=== PATIENT | female | born 1940 | race Caucasian/White ===

== ENCOUNTER 2019-02-06 06:33 | Day surgery (SDC) | payer OTHER, MEDICARE ==
[2019-02-05 16:14] VITALS: BMI 22.8
[2019-02-06 07:28] LABS: BASO % 0.7 % (0-2.0); EOS % 3.1 % (0-4.5); HEMATOCRIT 41.9 % (32.4-45.2); HEMOGLOBIN 13.8 GM/dl (10.7-15.3); MCH 27.8 pg (25.7-33.7); MCHC 32.9 g/dl (32.0-36.0); MEAN CELL VOLUME 84.5 fl (80-96); MEAN PLT VOLUME 6.4 fl (7.5-11.1); MONO % 9.6 % (3.8-10.2); NEUT % 56.6 % (42.8-82.8); PLATELET COUNT 426 K/MM3 (134-434); RBC 4.95 M/mm3 (3.60-5.2); RDW 13.4 % (11.6-15.6)
[2019-02-06] MEDS ORDERED: ACETAMINOPHEN 325 MG TABLET (FP) PO PRN (07:29)
[2019-02-06] MEDS ORDERED: PROMETHAZINE HCL 25 MG/1 ML VIAL IVPUSH PRN (07:29)
[2019-02-06] MEDS ORDERED: ONDANSETRON 4 MG/2 ML VIAL IVPUSH PRN (07:29)
[2019-02-06] MEDS ORDERED: LACTATED RINGERS SOLUTION 1,000 ML IV SCH (07:30)
[2019-02-06 07:33] LABS: ALBUMIN 4.3 g/dl (3.4-5.0); BILIRUBIN,TOTAL 0.4 mg/dl (0.2-1); CALCIUM 9.3 mg/dl (8.5-10); CREATININE 0.7 mg/dl (0.55-1.3); MAGNESIUM 2.1 mg/dL (1.8-2.4); POTASSIUM 4.7 mmol/L (3.5-5.1); TOT PROT 7.1 g/dl (6.4-8.2)
[2019-02-06] MEDS ORDERED: KETAMINE HCL 500 MG/10 ML VIAL ONE (07:57)
[2019-02-06 11:14] VITALS: TEMP 98.2
[2019-02-06 11:44] VITALS: BP 138/72; PULSE 72
--- NOTE | 2019-02-06 14:16 | HP ---
CHIEF COMPLAINT: Major depressive disorder PCP: Dr. Gibson [place] Primary Psychiatrist: HISTORY OF PRESENT ILLNESS: 78 year-old female with a PMH significant for HTN, HLD, hypothyroidism, colitis , and major depressive disorder. Patient presents today for her first ECT session. 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 [employer]; lives in [place] with , no children Smoking: quit 40 years ago Alcohol: social Drugs: no Family history: father decesased CVA, colon cancer; mother depression, lung cancer Allergies escitalopram Allergy (Severe, Verified 02/05/19 15:49) HYPERTENSION HOME MEDICATIONS: Home Medications Medication Instructions Recorded Amlodipine Besylate 2.5 mg PO DAILY 02/05/19 Budesonide [Budesonide EC] 3 mg PO DAILY 02/05/19 Clonidine HCl 0.1 mg PO DAILY PRN 02/05/19 Hydrochlorothiazide [Hctz -] 12.5 mg PO DAILY 02/05/19 Levothyroxine [Synthroid -] 50 mcg PO DAILY 02/05/19 Lorazepam [Ativan] 0.5 mg PO DAILY 02/05/19 Lorazepam [Ativan] 0.5 mg PO DAILY PRN 02/05/19 Propranolol HCl 20 mg PO DAILY 02/05/19 Quetiapine Fumarate [Seroquel] 100 mg PO HS 02/05/19 Quinapril HCl 60 mg PO DAILY 02/05/19 Zolpidem Tartrate [Ambien] 5 mg PO HS 02/05/19 REVIEW OF SYSTEMS CONSTITUTIONAL: Absent: fever, chills, diaphoresis, generalized weakness, malaise, loss of appetite, weight change HEENT: Absent: rhinorrhea, nasal congestion, throat pain, throat swelling, difficulty swallowing, mouth swelling, ear pain, eye pain, visual changes CARDIOVASCULAR: Absent: chest pain, syncope, palpitations, irregular heart rate, lightheadedness , peripheral edema RESPIRATORY: Absent: cough, shortness of breath, dyspnea with exertion, orthopnea, wheezing, stridor, hemoptysis GASTROINTESTINAL: Absent: abdominal pain, abdominal distension, nausea, vomiting, diarrhea, constipation, melena, hematochezia GENITOURINARY: Absent: dysuria, frequency, urgency, hesitancy, hematuria, flank pain, genital pain MUSCULOSKELETAL: Absent: myalgia, arthralgia, joint swelling, back pain, neck pain SKIN: Absent: rash, itching, pallor HEMATOLOGIC/IMMUNOLOGIC: Absent: easy bleeding, easy bruising, lymphadenopathy, frequent infections ENDOCRINE: Absent: unexplained weight gain, unexplained weight loss, heat intolerance, cold intolerance NEUROLOGIC: Absent: headache, focal weakness or paresthesias, dizziness, unsteady gait, seizure, mental status changes, bladder or bowel incontinence PHYSICAL EXAMINATION Vital Signs - 24 hr 02/06/19 02/06/19 02/06/19 07:35 09:50 09:55 Temperature 97.5 F L Pulse Rate 60 64 69 Respiratory 16 16 16 Rate Blood Pressure 152/70 154/68 147/68 O2 Sat by Pulse 96 100 100 Oximetry (%) 02/06/19 02/06/19 02/06/19 10:00 10:05 10:20 Temperature Pulse Rate 68 65 67 Respiratory 19 14 17 Rate Blood Pressure 155/74 161/69 165/72 O2 Sat by Pulse 99 100 100 Oximetry (%) 02/06/19 02/06/19 02/06/19 10:35 10:40 10:50 Temperature 97.5 F L 98.2 F Pulse Rate 68 68 70 Respiratory 17 17 18 Rate Blood Pressure 162/70 162/70 156/78 O2 Sat by Pulse 99 99 96 Oximetry (%) 02/06/19 02/06/19 11:20 11:44 Temperature 98.2 F Pulse Rate 72 72 Respiratory 18 18 Rate Blood Pressure 138/72 138/72 O2 Sat by Pulse 97 Oximetry (%) GENERAL: Awake, alert, and fully oriented, in no acute distress. HEAD: Normal with no signs of trauma. EYES: Pupils equal, round and reactive to light, sclera anicteric, conjunctiva clear. LUNGS: Breath sounds equal, clear to auscultation bilaterally. No wheezes, and no crackles. No accessory muscle use. HEART: Regular rate and rhythm, normal S1 and S2 ABDOMEN: Soft, nontender, not distended MUSCULOSKELETAL: Normal range of motion at all joints. No bony deformities or tenderness. No CVA tenderness. UPPER EXTREMITIES: 2+ pulses, warm, well-perfused. No cyanosis. No clubbing. No peripheral edema. LOWER EXTREMITIES: 2+ pulses, warm, well-perfused. No calf tenderness. No peripheral edema. NEUROLOGICAL: Cranial nerves II-XII intact. Normal speech. Laboratory Results - last 24 hr 02/06/19 02/06/19 07:00 07:00 WBC 7.0 RBC 4.95 Hgb 13.8 Hct 41.9 MCV 84.5 MCH 27.8 MCHC 32.9 RDW 13.4 Plt Count 426 MPV 6.4 L Absolute Neuts (auto) 4.0 Neutrophils % 56.6 Lymphocytes % 30.0 Monocytes % 9.6 Eosinophils % 3.1 Basophils % 0.7 Sodium 128 L Potassium 4.7 Chloride 93 L Carbon Dioxide 27 Anion Gap 8 BUN 9.0 Creatinine 0.7 Est GFR (CKD-EPI)AfAm 96.86 Est GFR (CKD-EPI)NonAf 83.57 Random Glucose 109 H Calcium 9.3 Magnesium 2.1 Total Bilirubin 0.4 AST 21 ALT 22 Alkaline Phosphatase 58 Total Protein 7.1 Albumin 4.3 ASSESSMENT/PLAN 78 year-old female with a PMH significant for HTN, HLD, hypothyroidism, colitis , and major depressive disorder. Patient presents today for her first ECT session. Cardiac --HTN is treated with four daily medications and clonidine PRN. --BP needs to be carefully monitored prior to each ECT session --Revised Cardiac Risk Index for Pre-Operative Risk: 0 points, 0.4% risk of major cardiac event Pulmonary --no pulmonary history Neurological --no neurological or neurosurgical history; no history of trauma Anesthesia --no reported problems with anesthesia ECT is a low risk procedure. The relative benefits of the planned procedure outweigh the relative risks for this patient at this time. Visit type - Emergency Visit Emergency Visit: No - New Patient This patient is new to me today: Yes Date on this admission: 02/06/19 - Critical Care Critical Care patient: No
--- NOTE | 2019-02-10 11:33 | EKG ---
Test Reason : Blood Pressure : / mmHG Vent. Rate : 061 BPM Atrial Rate : 061 BPM P-R Int : 160 ms QRS Dur : 080 ms QT Int : 406 ms P-R-T Axes : 055 018 040 degrees QTc Int : 408 ms NORMAL SINUS RHYTHM NO PREVIOUS ECGS AVAILABLE Confirmed by SYED PALM MD ([id number]) on 02/10/2019 11:33:28 AM Referred By: Mikael Azevedo Confirmed By:SYED PALM MD
== END 2019-02-06 11:45 | disposition home or self-care (01) ==
LOC: FECT 06:33
PROVIDERS: ATTEND Psychiatry & Neurology Psychiatry
PROC: GZB4ZZZ Other Electroconvulsive Therapy (ICD-10-PCS; principal; 2019-02-06 07:30)
DX: F33.2 Major depressive disorder, recurrent severe without psychotic features (principal); I10 Essential (primary) hypertension; E78.5 Hyperlipidemia, unspecified; E03.9 Hypothyroidism, unspecified
CPT/HCPCS: 36415; 80053; 83735; 85025; 90870; 93005; 94760

== ENCOUNTER 2019-02-07 05:51 | Day surgery (SDC) | payer OTHER, MEDICARE ==
[2019-02-06 13:05] VITALS: BMI 22.8
[2019-02-07] MEDS ORDERED: KETAMINE HCL 500 MG/10 ML VIAL ONE (07:29)
[2019-02-07] MEDS ORDERED: LACTATED RINGERS SOLUTION 1,000 ML IV SCH (09:00)
[2019-02-07 09:03] VITALS: BP 154/62; PULSE 64; TEMP 98
== END 2019-02-07 09:30 | disposition home or self-care (01) ==
LOC: FECT 05:51
PROVIDERS: ATTEND Psychiatry & Neurology Psychiatry
PROC: GZB4ZZZ Other Electroconvulsive Therapy (ICD-10-PCS; principal; 2019-02-07 08:00)
DX: F32.9 Major depressive disorder, single episode, unspecified (principal)
CPT/HCPCS: 90870; 94760

== ENCOUNTER 2019-02-10 05:46 | Day surgery (SDC) | payer OTHER, MEDICARE ==
[2019-02-06 13:13] VITALS: BMI 22.8
[2019-02-10] MEDS ORDERED: LACTATED RINGERS SOLUTION 1,000 ML IV SCH (07:00)
[2019-02-10] MEDS ORDERED: KETAMINE HCL 500 MG/10 ML VIAL ONE (07:27)
[2019-02-10 08:52] VITALS: TEMP 97.9
[2019-02-10 10:16] VITALS: BP 152/72; PULSE 66
== END 2019-02-10 10:25 | disposition home or self-care (01) ==
LOC: FECT 05:46
PROVIDERS: ATTEND Psychiatry & Neurology Psychiatry
PROC: GZB4ZZZ Other Electroconvulsive Therapy (ICD-10-PCS; principal; 2019-02-10 07:30)
DX: F33.2 Major depressive disorder, recurrent severe without psychotic features (principal)
CPT/HCPCS: 90870; 94760

== ENCOUNTER 2019-02-12 05:47 | Day surgery (SDC) | payer OTHER, MEDICARE ==
[2019-02-06 13:18] VITALS: BMI 22.8
[2019-02-12] MEDS ORDERED: ONDANSETRON 4 MG/2 ML VIAL IVPUSH PRN (06:54)
[2019-02-12] MEDS ORDERED: oxyCODONE HCL 5 MG TABLET PO PRN (06:54)
[2019-02-12] MEDS ORDERED: ACETAMINOPHEN 325 MG TABLET (FP) PO PRN (06:54)
[2019-02-12] MEDS ORDERED: KETAMINE HCL 500 MG/10 ML VIAL ONE ×2 (07:11→07:33)
[2019-02-12 09:02] VITALS: TEMP 97.6
[2019-02-14 07:54] VITALS: BP 146/77; PULSE 64
== END 2019-02-12 09:30 | disposition home or self-care (01) ==
LOC: FECT 05:47
PROVIDERS: ATTEND Psychiatry & Neurology Psychiatry
PROC: GZB4ZZZ Other Electroconvulsive Therapy (ICD-10-PCS; principal; 2019-02-12 07:15)
DX: F32.9 Major depressive disorder, single episode, unspecified (principal)
CPT/HCPCS: 90870; 94760

== ENCOUNTER 2019-02-14 05:44 | Day surgery (SDC) | payer OTHER, MEDICARE ==
[2019-02-06 13:22] VITALS: BMI 22.8
[2019-02-14] MEDS ORDERED: LACTATED RINGERS SOLUTION 1,000 ML IV SCH (08:00)
[2019-02-14] MEDS ORDERED: ACETAMINOPHEN 325 MG TABLET (FP) PO PRN (08:00)
[2019-02-14] MEDS ORDERED: PROMETHAZINE HCL 25 MG/1 ML VIAL IVPUSH PRN (08:00)
[2019-02-14] MEDS ORDERED: KETAMINE HCL 500 MG/10 ML VIAL ONE (08:11)
[2019-02-14] MEDS ORDERED: METOPROLOL TARTRATE 5 MG/5 ML VIAL IVPUSH ONE (08:52)
[2019-02-14 09:48] VITALS: BP 144/78; PULSE 78; TEMP 98.1
== END 2019-02-14 10:24 | disposition home or self-care (01) ==
LOC: FECT 05:44
PROVIDERS: ATTEND Psychiatry & Neurology Psychiatry
PROC: GZB4ZZZ Other Electroconvulsive Therapy (ICD-10-PCS; principal; 2019-02-14 07:15)
DX: F32.9 Major depressive disorder, single episode, unspecified (principal)
CPT/HCPCS: 90870; 94760

== ENCOUNTER 2019-02-17 05:39 | Day surgery (SDC) | payer OTHER, MEDICARE | END 2019-02-17 09:25 | disposition home or self-care (01) | LOC: FECT 05:39 ==

== ENCOUNTER → 2019-02-19 | Day surgery (SDC) | payer OTHER, MEDICARE ==
[2019-02-10 14:53] VITALS: BMI 22.8
[~2019-02-19] MED LIST: ACETAMINOPHEN 325 MG TABLET (FP) PO PRN; KETAMINE HCL 500 MG/10 ML VIAL ONE; ONDANSETRON 4 MG/2 ML VIAL IVPUSH PRN; oxyCODONE HCL 5 MG TABLET PO PRN
[2019-02-19 08:48] VITALS: TEMP 97.6
[2019-02-19 11:18] VITALS: BP 180/87
[2019-02-19 11:21] VITALS: PULSE 61
== END | disposition home or self-care (01) ==
LOC: FECT 05:46
PROVIDERS: ATTEND Psychiatry & Neurology Psychiatry
PROC: GZB4ZZZ Other Electroconvulsive Therapy (ICD-10-PCS; principal; 2019-02-19 07:00)
DX: F33.2 Major depressive disorder, recurrent severe without psychotic features (principal)
CPT/HCPCS: 90870; 94760

== ENCOUNTER 2019-02-21 05:52 | Day surgery (SDC) | payer OTHER, MEDICARE ==
[2019-02-10 14:58] VITALS: BMI 22.8
[2019-02-21 07:09] VITALS: TEMP 98.4
[2019-02-21] MEDS ORDERED: LACTATED RINGERS SOLUTION 1,000 ML IV SCH (07:30)
[2019-02-21] MEDS ORDERED: KETAMINE HCL 500 MG/10 ML VIAL ONE (07:36)
[2019-02-21 09:30] VITALS: BP 140/68; PULSE 63
== END 2019-02-21 10:00 | disposition home or self-care (01) ==
LOC: FECT 05:52
PROVIDERS: ATTEND Psychiatry & Neurology Psychiatry
PROC: GZB4ZZZ Other Electroconvulsive Therapy (ICD-10-PCS; principal; 2019-02-21 07:00)
DX: F33.2 Major depressive disorder, recurrent severe without psychotic features (principal)
CPT/HCPCS: 90870; 94760

== ENCOUNTER 2019-02-26 05:44 | Day surgery (SDC) | payer OTHER, MEDICARE ==
[2019-02-14 17:35] VITALS: BMI 22.8
[2019-02-26] MEDS ORDERED: KETAMINE HCL 500 MG/10 ML VIAL ONE (07:57)
[2019-02-26 11:04] VITALS: TEMP 97.7
[2019-02-26 11:05] VITALS: BP 156/87; PULSE 69
== END 2019-02-26 09:40 | disposition home or self-care (01) ==
LOC: FECT 05:44
PROVIDERS: ATTEND Psychiatry & Neurology Psychiatry
PROC: GZB4ZZZ Other Electroconvulsive Therapy (ICD-10-PCS; principal; 2019-02-26 07:15)
DX: F32.9 Major depressive disorder, single episode, unspecified (principal)
CPT/HCPCS: 90870; 94760

== ENCOUNTER 2019-02-28 05:38 | Day surgery (SDC) | payer OTHER, MEDICARE ==
[2019-02-19 15:56] VITALS: BMI 22.8
[2019-02-28 07:09] VITALS: TEMP 98.4
[2019-02-28] MEDS ORDERED: KETAMINE HCL 500 MG/10 ML VIAL ONE (07:22)
[2019-02-28] MEDS ORDERED: ONDANSETRON 4 MG/2 ML VIAL IVPUSH PRN (08:22)
[2019-02-28] MEDS ORDERED: LACTATED RINGERS SOLUTION 1,000 ML IV SCH (08:30)
[2019-03-03 08:53] VITALS: BP 158/76; PULSE 69
== END 2019-02-28 09:20 | disposition home or self-care (01) ==
LOC: FECT 05:38
PROVIDERS: ATTEND Psychiatry & Neurology Psychiatry
PROC: GZB4ZZZ Other Electroconvulsive Therapy (ICD-10-PCS; principal; 2019-02-28 07:15)
DX: F32.9 Major depressive disorder, single episode, unspecified (principal)
CPT/HCPCS: 90870; 94760

== ENCOUNTER 2019-03-03 05:40 | Day surgery (SDC) | payer OTHER, MEDICARE ==
[2019-02-20 12:22] VITALS: BMI 22.8
[2019-03-03] MEDS ORDERED: KETAMINE HCL 500 MG/10 ML VIAL ONE (06:51)
[2019-03-03 08:55] VITALS: PULSE 66
[2019-03-03 09:09] VITALS: TEMP 98.8
[2019-03-03 10:50] VITALS: BP 150/78
== END 2019-03-03 10:00 | disposition home or self-care (01) ==
LOC: FECT 05:40
PROVIDERS: ATTEND Psychiatry & Neurology Psychiatry
PROC: GZB4ZZZ Other Electroconvulsive Therapy (ICD-10-PCS; principal; 2019-03-03 07:00)
DX: F33.2 Major depressive disorder, recurrent severe without psychotic features (principal)
CPT/HCPCS: 90870; 94760

== ENCOUNTER 2019-03-05 06:09 | Day surgery (SDC) | payer OTHER, MEDICARE ==
[2019-03-05 06:43] VITALS: BMI 22.8
[2019-03-05] MEDS ORDERED: KETAMINE HCL 500 MG/10 ML VIAL ONE (07:03)
[2019-03-05 08:37] VITALS: TEMP 98.4
[2019-03-05 09:02] VITALS: BP 153/71; PULSE 66
== END 2019-03-05 09:15 | disposition home or self-care (01) ==
LOC: FECT 06:09 → FASU 06:09
PROVIDERS: ATTEND Psychiatry & Neurology Psychiatry
PROC: GZB4ZZZ Other Electroconvulsive Therapy (ICD-10-PCS; principal; 2019-03-05 07:00)
DX: F33.2 Major depressive disorder, recurrent severe without psychotic features (principal)
CPT/HCPCS: 90870; 94760

== ENCOUNTER 2019-03-07 05:40 | Day surgery (SDC) | payer OTHER, MEDICARE ==
[2019-03-07 07:03] VITALS: TEMP 98.3; BMI 22.8
[2019-03-07] MEDS ORDERED: KETAMINE HCL 500 MG/10 ML VIAL ONE (07:33)
[2019-03-07 09:19] VITALS: BP 151/71; PULSE 64
== END 2019-03-07 09:10 | disposition home or self-care (01) ==
LOC: FECT 05:40
PROVIDERS: ATTEND Psychiatry & Neurology Psychiatry
PROC: GZB4ZZZ Other Electroconvulsive Therapy (ICD-10-PCS; principal; 2019-03-07 07:15)
DX: F32.9 Major depressive disorder, single episode, unspecified (principal)
CPT/HCPCS: 90870; 94760

== ENCOUNTER 2019-03-10 05:36 | Day surgery (SDC) | payer OTHER, MEDICARE ==
[2019-03-07 11:33] VITALS: BMI 22.8
--- NOTE | 2019-03-10 07:44 | HP ---
CHIEF COMPLAINT: Major depressive disorder PCP: Dr. Gibson [place] Primary Psychiatrist: Mahamed Kilgore HISTORY OF PRESENT ILLNESS: 78 year-old female with a PMH significant for HTN, HLD, hypothyroidism, colitis , and major depressive disorder. Patient presents today for ECT. 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 [email or web address]; lives in [place] with , no children Smoking: quit 40 years ago Alcohol: social Drugs: no Family history: father decesased CVA, colon cancer; mother depression, lung cancer Allergies escitalopram Allergy (Severe, Verified 03/06/19 16:26) HYPERTENSION HOME MEDICATIONS: Home Medications Medication Instructions Recorded Amlodipine Besylate 2.5 mg PO HS 02/05/19 Budesonide [Budesonide EC] 3 mg PO DAILY 02/05/19 Clonidine HCl 0.1 mg PO DAILY PRN MDD NOT 02/05/19 RECENTLY Levothyroxine [Synthroid -] 25 mcg PO DAILY 02/05/19 Lorazepam [Ativan] 0.5 mg PO DAILY 02/05/19 Lorazepam [Ativan] 0.5 mg PO DAILY PRN MDD NOT 02/05/19 RECENTLY Propranolol HCl 20 mg PO DAILY 02/05/19 Quetiapine Fumarate [Seroquel -] 100 mg PO HS 02/05/19 Quinapril HCl 60 mg PO DAILY 02/05/19 Zolpidem Tartrate [Ambien] 5 mg PO HS 02/05/19 REVIEW OF SYSTEMS CONSTITUTIONAL: Absent: fever, chills, diaphoresis, generalized weakness, malaise, loss of appetite, weight change HEENT: Absent: rhinorrhea, nasal congestion, throat pain, throat swelling, difficulty swallowing, mouth swelling, ear pain, eye pain, visual changes CARDIOVASCULAR: Absent: chest pain, syncope, palpitations, irregular heart rate, lightheadedness , peripheral edema RESPIRATORY: Absent: cough, shortness of breath, dyspnea with exertion, orthopnea, wheezing, stridor, hemoptysis GASTROINTESTINAL: Absent: abdominal pain, abdominal distension, nausea, vomiting, diarrhea, constipation, melena, hematochezia GENITOURINARY: Absent: dysuria, frequency, urgency, hesitancy, hematuria, flank pain, genital pain MUSCULOSKELETAL: Absent: myalgia, arthralgia, joint swelling, back pain, neck pain SKIN: Absent: rash, itching, pallor HEMATOLOGIC/IMMUNOLOGIC: Absent: easy bleeding, easy bruising, lymphadenopathy, frequent infections ENDOCRINE: Absent: unexplained weight gain, unexplained weight loss, heat intolerance, cold intolerance NEUROLOGIC: Absent: headache, focal weakness or paresthesias, dizziness, unsteady gait, seizure, mental status changes, bladder or bowel incontinence PHYSICAL EXAMINATION Vital Signs - 24 hr 03/10/19 06:52 Temperature 98.4 F Pulse Rate 65 Respiratory 18 Rate Blood Pressure 148/82 O2 Sat by Pulse 100 Oximetry (%) GENERAL: Awake, alert, and fully oriented, in no acute distress. HEAD: Normal with no signs of trauma. EYES: Pupils equal, round and reactive to light, sclera anicteric, conjunctiva clear. LUNGS: Breath sounds equal, clear to auscultation bilaterally. No wheezes, and no crackles. No accessory muscle use. HEART: Regular rate and rhythm, normal S1 and S2 ABDOMEN: Soft, nontender, not distended MUSCULOSKELETAL: Normal range of motion at all joints. No bony deformities or tenderness. No CVA tenderness. UPPER EXTREMITIES: 2+ pulses, warm, well-perfused. No cyanosis. No clubbing. No peripheral edema. LOWER EXTREMITIES: 2+ pulses, warm, well-perfused. No calf tenderness. No peripheral edema. NEUROLOGICAL: Cranial nerves II-XII intact. Normal speech. ASSESSMENT/PLAN: 78 year-old female with a PMH significant for HTN, HLD, hypothyroidism, colitis , and major depressive disorder. Patient presents today for ECT. Cardiac --HTN is treated with four daily medications and clonidine PRN. --BP needs to be carefully monitored prior to each ECT session --Revised Cardiac Risk Index for Pre-Operative Risk: 0 points, 0.4% risk of major cardiac event Cardiac --no cardiac history --Revised Cardiac Risk Index for Pre-Operative Risk: 0 points, 0.4% risk of major cardiac event Pulmonary --no pulmonary history Neurological --no neurological or neurosurgical history; no history of trauma Anesthesia --no reported problems with anesthesia ECT is a low risk procedure. The relative benefits of the planned procedure outweigh the relative risks for this patient at this time. Visit type - Emergency Visit Emergency Visit: No - New Patient This patient is new to me today: Yes Date on this admission: 03/10/19 - Critical Care Critical Care patient: No
[2019-03-10] MEDS ORDERED: KETAMINE HCL 500 MG/10 ML VIAL ONE (08:01)
[2019-03-10 08:30] VITALS: TEMP 97.2
[2019-03-10] MEDS ORDERED: ACETAMINOPHEN 325 MG TABLET (FP) PO PRN (08:44)
[2019-03-10] MEDS ORDERED: PROMETHAZINE HCL 25 MG/1 ML VIAL IVPUSH PRN (08:44)
[2019-03-10] MEDS ORDERED: ONDANSETRON 4 MG/2 ML VIAL IVPUSH PRN (08:44)
[2019-03-10] MEDS ORDERED: LACTATED RINGERS SOLUTION 1,000 ML IV SCH (08:45)
[2019-03-10 09:37] VITALS: BP 145/78; PULSE 65
== END 2019-03-10 09:40 | disposition home or self-care (01) ==
LOC: FECT 05:36
PROVIDERS: ATTEND Psychiatry & Neurology Psychiatry
PROC: GZB4ZZZ Other Electroconvulsive Therapy (ICD-10-PCS; principal; 2019-03-10 07:30)
DX: F33.2 Major depressive disorder, recurrent severe without psychotic features (principal)
CPT/HCPCS: 90870; 94760